=== PATIENT | female | born 1990 | race Caucasian/White ===

== ENCOUNTER 2018-01-16 02:47 | Emergency (ER) | payer OTHER ==
[2018-01-16 02:56] VITALS: RESP 18
[2018-01-16] MEDS ORDERED: SODIUM CHLORIDE 0.9% 500 ML IV STA (03:06)
[2018-01-16] MEDS ORDERED: LACOSAMIDE 50 MG TABLET PO STA (03:09)
[2018-01-16] MEDS ORDERED: TOPIRAMATE 100 MG TAB PO STA (03:09)
--- NOTE | 2018-01-16 03:24 | ED ---
Seizure HPI - General Chief Complaint: Seizure Stated Complaint: seizures Time Seen by Provider: 01/16/18 03:00 Source: patient Mode of arrival: wheelchair Limitations: no limitations - History of Present Illness Initial Comments: 27-year-old female patient presents to the emergency department today with complaints of increased seizures. Patient states that she has had epilepsy diagnosis since the age of 3. Patient states that she was taking Vimpat and Topamax to control her seizures but an issue with her insurance made it unable for her to be seen by her neurologist. Patient states that she has not had a prescription for the last month and a half. Patient states that she has had seizures over the last 2 days. Mother is present reports that patient had a 3 minute seizure this evening. States they're tonic-clonic grand mal. Patient did lose bladder function. Mother states this is usual for her. Patient is referred physical symptoms or concerns. States that she has not been sick recently. Patient denies any recent rash, fever, chills, shortness breath, chest pain, abdominal pain, nausea, vomiting, diarrhea, constipation, back pain , numbness, tingling, dizziness, weakness, hematuria, dysuria, urinary urgency, urinary frequency, headache, visual changes, or any other complaints. - Related Data Previous Rx's Medication Instructions Recorded Lacosamide [Vimpat] 100 mg PO BID #60 tablet 01/16/18 Topiramate [Topamax] 100 mg PO AC-BID #60 tablet 01/16/18 Allergies Allergy/AdvReac Type Severity Reaction Status Date / Time alprazolam [From Xanax] Allergy Hallucinati Verified 01/16/18 02:58 ons carbamazepine [From Tegretol] Allergy Hallucinati Verified 01/16/18 02:58 ons morphine Allergy Itching Verified 01/16/18 02:58 aspirin AdvReac Nausea & Verified 01/16/18 02:58 Vomiting Review of Systems ROS Statement: Those systems with pertinent positive or pertinent negative responses have been documented in the HPI. ROS Other: All systems not noted in ROS Statement are negative. Past Medical History Past Medical History: Seizure Disorder History of Any Multi-Drug Resistant Organisms: MRSA Date of last positivie culture/infection: 2011 MDRO Source:: Inner Thigh Past Surgical History: Orthopedic Surgery Additional Past Surgical History / Comment(s): Left shoulder surgery Past Psychological History: ADD/ADHD, Anxiety, Bipolar, Depression, PTSD Smoking Status: Current every day smoker Past Alcohol Use History: None Reported Past Drug Use History: Marijuana General Exam Limitations: no limitations General appearance: alert, in no apparent distress, other (This is a well- developed, well-nourished adult female patient in no acute distress. Vital signs upon presentation are temperature 98.7F, pulse 77, respirations 18, blood pressure 114/67, pulse ox 98% on room air.) Eye exam: Present: normal appearance, PERRL, EOMI. Absent: scleral icterus, conjunctival injection, periorbital swelling ENT exam: Present: normal exam, normal oropharynx, mucous membranes moist Respiratory exam: Present: normal lung sounds bilaterally. Absent: respiratory distress, wheezes, rales, rhonchi, stridor Cardiovascular Exam: Present: regular rate, normal rhythm, normal heart sounds. Absent: systolic murmur, diastolic murmur, rubs, gallop, clicks GI/Abdominal exam: Present: soft, normal bowel sounds. Absent: distended, tenderness, guarding, rebound, rigid Neurological exam: Present: alert, oriented X3, CN II-XII intact, other ( Strength in all 4 extremities is 5/5.) Psychiatric exam: Present: normal affect, normal mood Skin exam: Present: warm, dry, intact, normal color. Absent: rash Course Vital Signs 01/16/18 02:51 Temperature 98.7 F Pulse Rate 77 Respiratory 18 Rate Blood Pressure 114/67 O2 Sat by Pulse 98 Oximetry Medical Decision Making - Medical Decision Making 27-year-old female patient presented to the emergency department today for evaluation of increase in seizure activity. Patient has been out of her medications for the last month and a half. Physical examination is unremarkable. Labs are unremarkable. We will refill patient's Vimpat and Topamax. She is instructed to follow up with neurology as soon as possible, she is on a waiting list is expected to see a neurologist in the middle of January. Return parameters discussed in detail. She verbalizes understanding and agrees with this plan. - Lab Data Result diagrams: 01/16/18 03:19 Lab Results 01/16/18 01/16/18 01/16/18 Range/Units 03:19 03:19 03:19 WBC 5.6 (3.8-10.6) k/uL RBC 4.31 (3.80-5.40) m/uL Hgb 13.7 (11.4-16.0) gm/dL Hct 40.7 (34.0-46.0) % MCV 94.4 (80.0-100.0) fL MCH 31.7 (25.0-35.0) pg MCHC 33.6 (31.0-37.0) g/dL RDW 12.9 (11.5-15.5) % Plt Count 221 (150-450) k/uL Neutrophils % 45 % Lymphocytes % 46 % Monocytes % 4 % Eosinophils % 3 % Basophils % 1 % Neutrophils # 2.5 (1.3-7.7) k/uL Lymphocytes # 2.6 (1.0-4.8) k/uL Monocytes # 0.2 (0-1.0) k/uL Eosinophils # 0.2 (0-0.7) k/uL Basophils # 0.0 (0-0.2) k/uL Urine Color Yellow Urine Appearance Cloudy H (Clear) Urine pH 5.5 (5.0-8.0) Ur Specific [place] 1.017 (1.001-1.035) Urine Protein 1+ H (Negative) Urine Glucose (UA) Negative (Negative) Urine Ketones 1+ H (Negative) Urine Blood Negative (Negative) Urine Nitrite Negative (Negative) Urine Bilirubin Negative (Negative) Urine Urobilinogen <2.0 (<2.0) mg/dL Ur Leukocyte Esterase Small H (Negative) Urine RBC 2 (0-5) /hpf Urine WBC 5 (0-5) /hpf Ur Squamous Epith Cells 20 H (0-4) /hpf Urine Mucus Few H (None) /hpf Urine HCG, Qual Not Detected (Not Detectd) - EKG Data -: EKG Interpreted by Nd EKG Comments: EKG obtained at 11 23 shows normal sinus rhythm with a ventricular rate of 77, CA interval 128, QR zoroastrian 84, QT 386, QTc 436. No evidence of ST elevation or depression. Disposition Clinical Impression: Recurrent seizures Disposition: HOME SELF-CARE Condition: Good Instructions: Recurrent Seizures in Adults (ED) Additional Instructions: Take medications as directed. Follow up with neurology as soon as possible. Return here immediately for any new, worsening, or concerning symptoms. Prescriptions: Lacosamide [Vimpat] 100 mg PO BID #60 tablet Topiramate [Topamax] 100 mg PO AC-BID #60 tablet Is patient prescribed a controlled substance at d/c from ED?: No Referrals: None,Stated [Primary Care Provider] - 1-2 days
[2018-01-16 03:34] LABS: Appearance,Urine Cloudy (Clear); Basophils % (A) 1 %; Bilirubin,Urine Negative (Negative); Blood,Urine Negative (Negative); Color,Urine Yellow; Eosinophils # (A) 0.2 k/uL (0-0.7); Eosinophils % (A) 3 %; Glucose,Urine (UA) Negative (Negative); HCT 40.7 % (34.0-46.0); HGB 13.7 gm/dL (11.4-16.0); Ketones,Urine 1+ (Negative); Leukocyte Esterase,Urine Small (Negative); Lymphocytes # (A) 2.6 k/uL (1.0-4.8); Lymphocytes % (A) 46 %; MCH 31.7 pg (25.0-35.0); MCHC 33.6 g/dL (31.0-37.0); MCV 94.4 fL (80.0-100.0); Mean Platelet Volume 6.7; Monocytes # (A) 0.2 k/uL (0-1.0); Monocytes % (A) 4 %; Mucus,Urine Few /hpf; Neutrophils # (A) 2.5 k/uL (1.3-7.7); Neutrophils % (A) 45 %; Nitrite,Urine Negative (Negative); PH, Urine 5.5 (5.0-8.0); Platelet Count 221 k/uL (150-450); Protein,Urine 1+ (Negative); RBC 4.31 m/uL (3.80-5.40); RBC,Urine 2 /hpf (0-5); RDW 12.9 % (11.5-15.5); Specific Gravity,Urine 1.017 (1.001-1.035); Squamous Epithelial Cell,Urine 20 /hpf (0-4); Urobilinogen,Urine <2.0 mg/dL (<2.0); WBC 5.6 k/uL (3.8-10.6); WBC,Urine 5 /hpf (0-5)
[2018-01-16 03:41] LABS: ALT 38 U/L (9-52); AST 36 U/L (14-36); Albumin 4.4 g/dL (3.5-5.0); Alkaline Phosphatase 67 U/L (38-126); Anion Gap 15 mmol/L; Blood Urea Nitrogen 11 mg/dL (7-17); Calcium 9.5 mg/dL (8.4-10.2); Carbon Dioxide 25 mmol/L (22-30); Chloride 106 mmol/L (98-107); Glucose 75 mg/dL (74-99); Potassium 3.5 mmol/L (3.5-5.1); Sodium 146 mmol/L (137-145); Total Bilirubin 0.5 mg/dL (0.2-1.3); Total Protein 6.9 g/dL (6.3-8.2)
[2018-01-16 03:57] LABS: Amphetamine Screen,Urine Not Detected (NotDetected); Barbiturate Screen,Urine Not Detected (NotDetected); Benzodiazepines Screen,Urine Not Detected (NotDetected); Cocaine Screen,Urine Not Detected (NotDetected); Methadone Screen, Urine Not Detected (NotDetected); Opiate Screen,Urine Not Detected (NotDetected); Oxycodone Screen, Urine Not Detected (NotDetected); Phencyclidine Screen,Urine Not Detected (NotDetected); Tricyclic Antidepressant,Urine Not Detected (NotDetected); Urn Cannabinoid Scrn Detected (NotDetected)
[2018-01-16 04:06] VITALS: BP 106/55; PULSE 83; TEMP 97.5
== END 2018-01-16 04:06 | disposition home or self-care (01) ==
LOC: EC 02:47
DX: G40.909 Epilepsy, unspecified, not intractable, without status epilepticus (principal); Z76.0 Encounter for issue of repeat prescription; F17.200 Nicotine dependence, unspecified, uncomplicated; Z88.5 Allergy status to narcotic agent; Z88.6 Allergy status to analgesic agent; Z88.8 Allergy status to other drugs, medicaments and biological substances; Z86.14 Personal history of Methicillin resistant Staphylococcus aureus infection
CPT/HCPCS: 36415; 80053; 80306; 81001; 81025; 85025; 93005; 96360; 99284